=== PATIENT | female | born 1965 | race Caucasian/White ===

== ENCOUNTER 2017-01-11 06:42 | Inpatient (IN) | payer OTHER ==
[2017-01-11] MEDS ORDERED: LR 1,000 ML IV PRN (07:55)
[2017-01-11] MEDS ORDERED: IBUPROFEN 600 MG TAB PO PRN (07:55)
[2017-01-11] MEDS ORDERED: TERBUTALINE SULFATE 1 MG/ML VIAL IV PRN (07:55)
[2017-01-11] MEDS ORDERED: OLIVE OIL 118 ML BTL MISC PRN (07:55)
[2017-01-11] MEDS ORDERED: EPSOM SALT 454 GM TP PRN (07:55)
[2017-01-11] MEDS ORDERED: OXYTOCIN/RINGERS LACTATE 1,000 ML IV PRN (07:55)
[2017-01-11 07:58] LABS: % IMMATURE GRANULYOCYTES 0.6 % (0.0-1.1); ABSOLUTE IMMATURE GRANULOCYTES 0.07 10^3/uL (0.00-0.10); ADD DIFF? NO; ADD MORPH? NO; ADD SCAN? NO; ATYPICAL LYMPHOCYTE FLAG 0 (0-99); FRAGMENT RBC FLAG 0 (0-99); HEMATOCRIT 34.8 % (38.0-47.0); HEMOGLOBIN 11.7 g/dL (12.6-16.3); LEFT SHIFT FLG 0 (0-99); LIPEMIA HEMOLYSIS FLAG 80 (0-99); MEAN CELL HEMOGLOBIN 29.8 pg (27.9-34.1); MEAN CELL HEMOGLOBIN CONCENTR. 33.6 g/dL (32.4-36.7); MEAN CELL VOLUME 88.8 fL (81.5-99.8); MEAN PLATELET VOLUME 10.1 fL (8.7-11.7); PLATELET CLUMPS FLAG 0 (0-99); PLATELET COUNT 265 10^3/uL (150-400); RED BLOOD CELL COUNT 3.92 10^6/uL (4.18-5.33); RED CELL DISTRIBUTION WIDTH 15.1 % (11.5-15.2)
[2017-01-11] MEDS ORDERED: LR 500 ML IV PRN (07:59)
[2017-01-11] MEDS ORDERED: OXYTOCIN/RINGERS LACTATE 500 ML IV SCH (08:00)
[2017-01-11] MEDS ORDERED: hydrALAZINE 20 MG/ML VIAL IVP ONE (08:02)
[2017-01-11 08:23] LABS: ALANINE AMINOTRANSFERASE 30 IU/L (9-52); ASPARTATE AMINOTRANSFERASE 18 IU/L (14-46); BILIRUBIN,TOTAL 0.4 mg/dL (0.1-1.4); BILIRUBIN-CONJUGATED 0.2 mg/dL (0.0-0.5); BILIRUBIN-UNCONJUGATED 0.2 mg/dL (0.0-1.1); CREATININE 0.7 mg/dL (0.6-1.0); GLOMERULAR FILTRATION RATE > 60; LACTATE DEHYDROGENASE 471 IU/L (313-618); URIC ACID 5.5 mg/dL (2.5-6.8)
[2017-01-11] MEDS ORDERED: hydrALAZINE 20 MG/ML VIAL IVP PRN (08:55)
[2017-01-11] MEDS ORDERED: LIDOCAINE 1% 300 MG/30 ML SDV ONE (10:27)
[2017-01-11] MEDS ORDERED: OXYTOCIN 10 UNIT/ML VIAL ONE (10:27)
[2017-01-11] MEDS ORDERED: MISOPROSTOL 200 MCG TAB ONE (10:27)
[2017-01-11] MEDS ORDERED: AMMONIA AROMATIC 1 EACH AMP IH ONE (10:27)
[2017-01-11] MEDS ORDERED: TERBUTALINE SULFATE 1 MG/ML VIAL ONE (10:27)
[2017-01-11] MEDS ORDERED: OLIVE OIL 118 ML BTL ONE (10:27)
[2017-01-11] MEDS ORDERED: LABETALOL HCL 5 MG/ML 20 ML MDV IVP ONE (10:45)
--- NOTE | 2017-01-11 10:53 | GHP ---
[f rep st] PREOP HISTORY AND PHYSICAL DATE OF ADMISSION: 01/11/2017 HISTORY UPON ADMISSION: The patient is a 51-year-old, G6, P3, A2 with estimated due date of January 23, who presents at 38 weeks and 2 days for induction of labor. The patient's is most recently complicated by -induced hypertension with 2 visits that recorded blood pressures 140s/ 90s, and the patient has proteinuria greater than 500. The patient has periodically had headaches, and the last headache that was the most intense was last night. It did go away with rest. The patient off and on has nausea, but nothing persistent. She did have emesis this morning with her pills on an empty stomach, but is not currently having nausea or headache. The patient has had building edema, and has pitting edema up to her knees at this point. The patient had PIH labs done several weeks ago that were normal, and again today on admission her PIH labs all normal. The patient has been counseled as to the risks and benefits, especially in light of her advanced age. The patient is advised to induce for delivery. The patient agrees, and we will begin Pitocin this morning. The patient's cervix was very favorable with a cervical exam of 3 cm yesterday. CARE: The patient has been with [facility] since 8 weeks gestation. The patient had a conception with IVF with a donor egg through [facility]. The patient had concerns with preimplantation genetic testing that there was an abnormality on chromosome 6. The patient had an amniocentesis done, which did not reveal any chromosomal 6 abnormalities, and the patient has had several serial ultrasounds with the [facility] specialist to assess growth and structure, and these were all normal. The patient did have an echo done in mid that was normal. The patient is advanced age, and has had twice weekly NSTs in the last month, which have been reassuring. She also had a 3rd trimester growth, which showed the 77th percentile of size and good symmetric growth. Normal fluid and placental appearance. The patient has Lawrence's thyroiditis, and has been on natural thyroid replacement. Labs have been checked through the by the patient's thyroid specialist, and they have been reassuring. The patient had gestational diabetes with earlier pregnancies, however 2 checks during this were normal. She has not had any glucosuria recently. labs include maternal blood type A positive with negative antibody screen. RPR nonreactive. Rubella immune. Hepatitis B surface antigen negative. HIV negative. First trimester glucose test was 117, and this was rechecked in 3rd trimester, and it was 95. The patient was also noted to be mildly anemic at 33, and has been on iron. Urinalysis and culture were negative. Pap smear normal. Gonorrhea and chlamydia were negative. The patient had amniocentesis testing as noted above. GBS culture was negative. 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 The patient has had Pap followups and colposcopies x2. The patient had a cervical polyp that was noted and removed by [facility] in 2014. The patient had childhood asthma that was exercise induced with no current problems. The patient has Lawrence's that is followed by her primary care. The patient reports a chronic fatigue syndrome as a teenager. The patient had depression after her daughter's . The patient had an issue with hives for approximately 1 year after she received anesthesia for the surgical removal of a cervical polyp. PAST SURGICAL HISTORY: The hysteroscopy with removal of a cervical polyp in 2014, odontectomy. PAST OBSTETRIC HISTORY: In 1987 a termination of a 1st trimester . In March 1996, a female born at 39+ weeks gestation, with a 12-hour labor after an unmedicated vaginal . The patient had gestational diabetes and then depression. In September 2000, the patient had a male at 8 pounds 5 ounces, delivered after 24 hours of vaginal unmedicated delivery at term. In 2009 the patient had SAB in the 1st trimester. In January 2011, another viable male at 8 pounds 7 ounces with a vaginal at term of approximately 6-8 hours of active labor. ALLERGIES: The patient is allergic to gold, Biaxin, clarithromycin causing hives, and hives after an anesthetic procedure. CURRENT MEDICATIONS: The patient is takes vitamins and low-dose aspirin daily. She has been on vitamin D. She has taken her thyroid medication , which includes 2 different tablets, one is Nature-Throid, and another is a combination T4-T3 that the patient had managed by her primary care. SOCIAL HISTORY: Patient is , lives with her Silvestre and their 3 children. The patient is a nonsmoker. No alcohol or drug use. PHYSICAL EXAM: GENERAL: The patient is a well-developed, well-nourished, white female, in no physical distress. The patient is anxious today knowing that her blood pressure is elevated. VITAL SIGNS: The blood pressures are up to the 200s/100s, and have shown some improvement with multiple doses of hydralazine. The patient is afebrile, and other vital signs are normal. LUNGS : Clear to auscultation bilaterally. CARDIOVASCULAR: Regular rate and rhythm. ABDOMEN: Gravid. heart tones baseline in the 150s, with category 1 tracing, with great accelerations and variability. No decelerations noted. No contractions on monitor. PELVIC: Exam was not repeated, as the patient was told she was 3 cm dilated, with a high station yesterday in the office. EXTREMITIES: Pitting edema up to the knees. Normal DTRs with 1-beat of clonus bilaterally. ASSESSMENT: 1. Intrauterine at 38 weeks and 2 days with -induced hypertension. PIH labs drawn today are all normal. Mild anemia at 34%. We will continue hydralazine doses frequently until the blood pressure is improved. If the blood pressures do not, then we will institute magnesium sulfate for seizure prophylaxis. The patient is asymptomatic at this time. We will begin Pitocin for induction, and when able we will do AROM. 2. The patient is hypothyroid, and is on thyroid medication. 3. Advanced maternal age and an in vitro fertilization with donor egg. Amniocentesis normal by the patient's report. /[id number]/MODL MTDD
[2017-01-11] MEDS ORDERED: CALCIUM GLUCONATE 50 ML IV ONE (11:00)
[2017-01-11] MEDS: MAGNESIUM SULF 20 GM/500 ML BAG IV SCH (11:08)
[2017-01-11 13:55] LABS: ABSOLUTE IMMATURE GRANULOCYTES 0.14 10^3/uL (0.00-0.10); ADD DIFF? NO; ADD MORPH? NO; ADD SCAN? NO; ATYPICAL LYMPHOCYTE FLAG 0 (0-99); FRAGMENT RBC FLAG 0 (0-99); HEMATOCRIT 37.1 % (38.0-47.0); HEMOGLOBIN 12.7 g/dL (12.6-16.3); LEFT SHIFT FLG 10 (0-99); LIPEMIA HEMOLYSIS FLAG 90 (0-99); MEAN CELL HEMOGLOBIN 30.3 pg (27.9-34.1); MEAN CELL HEMOGLOBIN CONCENTR. 34.2 g/dL (32.4-36.7); MEAN CELL VOLUME 88.5 fL (81.5-99.8); MEAN PLATELET VOLUME 10.1 fL (8.7-11.7); PLATELET CLUMPS FLAG 0 (0-99); PLATELET COUNT 269 10^3/uL (150-400); RED BLOOD CELL COUNT 4.19 10^6/uL (4.18-5.33); RED CELL DISTRIBUTION WIDTH 15.3 % (11.5-15.2)
--- NOTE | 2017-01-11 14:16 | OBPROG ---
OBG Labor Progress Note Assessment/Plan: Assessment: IUP at 38w1d PIH with severe pressure range, now on MgSo4 with rose in bladder, proteinuria B/P really improved after labetolol/and Mg, prior had 6 doses of hydralazine AMA - age 51 IVF - donor egg Plan: cont on mg at 2gm/hr, pit to build ctxns, fluid limits 01/11/17 14:13 Subjective: Pt doing ok - was very anxious when b/p were so high. aware of ctxns - but not painful. GFM. GUTIERREZ last noc - not today. had emesis - this am with pills. Objective: 01/11/17 13:32 Patient ABO/Rh A POSITIVE 01/11/17 07:40 Uric Acid 5.5 mg/dL (2.5-6.8) 01/11/17 07:40 Total Bilirubin 0.4 mg/dL (0.1-1.4) 01/11/17 07:40 Conjugated Bilirubin 0.2 mg/dL (0.0-0.5) 01/11/17 07:40 Unconjugated Bilirubin 0.2 mg/dL (0.0-1.1) 01/11/17 07:40 AST 18 IU/L (14-46) 01/11/17 07:40 ALT 30 IU/L (9-52) 01/11/17 07:40 Lactate Dehydrogenase 471 IU/L (313-618) 01/11/17 07:40 Arechiga Current Contraction Pattern: Regular (q 3-4 min) FHR (bpm): 140 FHR Pattern Variability: Moderate FHR Category: 1 Membranes: Intact Oxytocin Orders Assessment - Pre-Induction/Augmentation Assessment Gestational Age: 38 week(s) and 2 day(s) ICD10 Worksheet Patient Problems: Problems Problem Status Onset -induced hypertension Acute
[2017-01-11 14:22] LABS: ALANINE AMINOTRANSFERASE 30 IU/L (9-52); ASPARTATE AMINOTRANSFERASE 17 IU/L (14-46); CREATININE 0.7 mg/dL (0.6-1.0); GLOMERULAR FILTRATION RATE > 60; LACTATE DEHYDROGENASE 540 IU/L (313-618); URIC ACID 5.6 mg/dL (2.5-6.8)
--- NOTE | 2017-01-11 15:58 | OBPROG ---
OBG Labor Progress Note Assessment/Plan: Assessment: IUP at 38w1d - induction with pit PIH with severe pressure range, now on MgSo4 with rose in bladder, proteinuria B/P really improved after labetolol/and Mg, prior had 6 doses of hydralazine AMA - age 51 IVF - donor egg Plan: cont on mg at 2gm/hr, pit to build ctxns, fluid limits - AROM done - to begin pushing soon 01/11/17 14:13 01/11/17 15:55 Subjective: Pt breathing through ctxns and using Nitrous - wants AROM Objective: 01/11/17 13:32 01/11/17 13:32 Patient ABO/Rh A POSITIVE 01/11/17 07:40 Uric Acid 5.6 mg/dL (2.5-6.8) 01/11/17 13:32 Total Bilirubin 0.4 mg/dL (0.1-1.4) 01/11/17 07:40 Conjugated Bilirubin 0.2 mg/dL (0.0-0.5) 01/11/17 07:40 Unconjugated Bilirubin 0.2 mg/dL (0.0-1.1) 01/11/17 07:40 AST 17 IU/L (14-46) 01/11/17 13:32 ALT 30 IU/L (9-52) 01/11/17 13:32 Lactate Dehydrogenase 540 IU/L (313-618) 01/11/17 13:32 - SVE Dilation (cm): 9 Effacement (%): 100 Station: 0 Arechiga Current Contraction Pattern: Regular (q 3 min on 12 mu/min pit) FHR (bpm): 140 FHR Pattern Variability: Moderate FHR Category: 2 Membranes: AROM, Intact Amniotic Fluid Color: Clear - Procedures Non-surgical Procedures: Amniotomy Oxytocin Orders Assessment - Pre-Induction/Augmentation Assessment Gestational Age: 38 week(s) and 2 day(s) ICD10 Worksheet Patient Problems: Problems Problem Status Onset -induced hypertension Acute
[2017-01-11] MEDS ORDERED: METHYLERGONOVINE MAL 0.2 MG/ML INJ ONE (17:01)
[2017-01-11] MEDS ORDERED: ACETAMINOPHEN 325 MG TAB PO PRN (18:11)
[2017-01-11] MEDS ORDERED: DOCUSATE SODIUM 100 MG CAP PO PRN (18:11)
--- NOTE | 2017-01-11 18:19 | OBDEL ---
Info Type: Vaginal GBS+: No Indications for Delivery: Preeclampsia Severe Vaginal Delivery - Labor and Delivery Onset of Contractions Date: 01/11/17 Onset of Contractions Time: 14:00 Onset of Contractions Type: Induced Rupture of Membranes Date: 01/11/17 Rupture of Membranes Time: 15:42 Rupture of Membranes Type: Artificial Amniotic Fluid Color: Clear Dilation Complete Date: 01/11/17 Dilation Complete Time: 16:24 Placenta Delivery Date: 01/11/17 Placenta Delivery Time: 17:00 Total Hours of Labor: 3 Non-surgical Procedures: Amniotomy Laceration: Other (Specify) (none) Vaginal Sponge Count Correct: Yes Vaginal Needle Count Correct: Yes Vaginal Sweep Performed: Yes EBL: 1500 Delivery Events: Post Hemorrhage, Retained Placenta (manual extraction after 30 minutes - appears intact but calcified with a marginal/velamentous cord insertion) Delivery Comment: cord blood and tissue collection - Medications Labor Augmentation/Induction Methods Used: Pitocin, Misoprostol (used after delivery - 1000mcg pr for PPH) Labor Augmentation/Induction Indication: Other (Specify) (severe preeclampsia) Spray Data Arechiga Delivery Date: 01/11/17 Delivery Time: 16:25 CARLYLE: 01/23/17 Gestational Age: 38 week(s) and 2 day(s) Sex of : Female Score (1 Min): 8 Score (5 Min): 10 ICD10 Worksheet Patient Problems: Problems Problem Status Onset Retained placenta with hemorrhage, condition Acute (spontaneous vaginal delivery) Acute Preeclampsia, severe Acute
[2017-01-11 21:19] LABS: HEMATOCRIT 28.5 % (38.0-47.0); HEMOGLOBIN 9.5 g/dL (12.6-16.3); MEAN CELL HEMOGLOBIN 30.1 pg (27.9-34.1); MEAN CELL HEMOGLOBIN CONCENTR. 33.3 g/dL (32.4-36.7); MEAN CELL VOLUME 90.2 fL (81.5-99.8); RED BLOOD CELL COUNT 3.16 10^6/uL (4.18-5.33); RED CELL DISTRIBUTION WIDTH 15.6 % (11.5-15.2)
[2017-01-12 00:51] LABS: % IMMATURE GRANULYOCYTES 1.2 % (0.0-1.1); ABSOLUTE IMMATURE GRANULOCYTES 0.27 10^3/uL (0.00-0.10); ADD DIFF? NO; ADD MORPH? NO; ADD SCAN? NO; ATYPICAL LYMPHOCYTE FLAG 0 (0-99); FRAGMENT RBC FLAG 0 (0-99); HEMATOCRIT 25.9 % (38.0-47.0); HEMOGLOBIN 8.7 g/dL (12.6-16.3); LEFT SHIFT FLG 10 (0-99); LIPEMIA HEMOLYSIS FLAG 80 (0-99); MEAN CELL HEMOGLOBIN 30.4 pg (27.9-34.1); MEAN CELL HEMOGLOBIN CONCENTR. 33.6 g/dL (32.4-36.7); MEAN CELL VOLUME 90.6 fL (81.5-99.8); MEAN PLATELET VOLUME 10.1 fL (8.7-11.7); PLATELET CLUMPS FLAG 0 (0-99); PLATELET COUNT 224 10^3/uL (150-400); RED BLOOD CELL COUNT 2.86 10^6/uL (4.18-5.33); RED CELL DISTRIBUTION WIDTH 15.9 % (11.5-15.2)
[2017-01-12] MEDS: MAGNESIUM SULF 20 GM/500 ML BAG IV SCH (05:50)
[2017-01-12 06:37] LABS: % IMMATURE GRANULYOCYTES 0.7 % (0.0-1.1); ABSOLUTE IMMATURE GRANULOCYTES 0.13 10^3/uL (0.00-0.10); ADD DIFF? NO; ADD MORPH? NO; ADD SCAN? NO; ATYPICAL LYMPHOCYTE FLAG 10 (0-99); FRAGMENT RBC FLAG 0 (0-99); HEMATOCRIT 23.8 % (38.0-47.0); LEFT SHIFT FLG 0 (0-99); LIPEMIA HEMOLYSIS FLAG 80 (0-99); MEAN CELL HEMOGLOBIN 30.3 pg (27.9-34.1); MEAN CELL HEMOGLOBIN CONCENTR. 33.6 g/dL (32.4-36.7); MEAN CELL VOLUME 90.2 fL (81.5-99.8); MEAN PLATELET VOLUME 10.3 fL (8.7-11.7); PLATELET CLUMPS FLAG 0 (0-99); PLATELET COUNT 226 10^3/uL (150-400); RED BLOOD CELL COUNT 2.64 10^6/uL (4.18-5.33); RED CELL DISTRIBUTION WIDTH 16.2 % (11.5-15.2)
[2017-01-12 06:58] LABS: ALANINE AMINOTRANSFERASE 26 IU/L (9-52); ASPARTATE AMINOTRANSFERASE 16 IU/L (14-46); BILIRUBIN,TOTAL 0.2 mg/dL (0.1-1.4); BILIRUBIN-CONJUGATED 0.2 mg/dL (0.0-0.5); CREATININE 0.8 mg/dL (0.6-1.0); GLOMERULAR FILTRATION RATE > 60; LACTATE DEHYDROGENASE 599 IU/L (313-618); URIC ACID 6.6 mg/dL (2.5-6.8)
--- NOTE | 2017-01-12 09:17 | OBPP ---
Progress Note Assessment/Plan: Assessment:ff@u scant rubra lochia minimally swelling vaginally , ice to perineum dtrs none clonus none vs wnl pain well managed denies passing gas rose catheter inplace 50cc per hour concentrated urine Plan:mgso4 until 1630 decrease mgso4 to 1gm per hour now/ work on / hct 23 with no mgso4 will assess symptoms of low hct with increased activity 01/12/17 09:18 Subjective: Feeling tired with magnesium sulfate. Bleeding minimally. going fair. Pumping routinely. Baby sleepy. Objective: 01/12/17 06:00 01/11/17 13:32 Patient ABO/Rh A POSITIVE 01/11/17 07:40 Uric Acid 5.6 mg/dL (2.5-6.8) 01/11/17 13:32 Total Bilirubin 0.4 mg/dL (0.1-1.4) D 01/11/17 07:40 Conjugated Bilirubin 0.2 mg/dL (0.0-0.5) 01/11/17 07:40 Unconjugated Bilirubin 0.2 mg/dL (0.0-1.1) 01/11/17 07:40 AST 17 IU/L (14-46) 01/11/17 13:32 ALT 30 IU/L (9-52) 01/11/17 13:32 Lactate Dehydrogenase 540 IU/L (313-618) 01/11/17 13:32 Physical Exam - Physical Exam General Appearance: WD/WN, alert, no apparent distress Respiratory: chest non-tender, lungs clear, normal breath sounds Cardiac/Chest: regular rate, rhythm Abdomen: normal bowel sounds, other (denies passing gas) Extremities: normal range of motion, Bryant's sign (negative bilaterally) DTR- Lower Extremities: Knee (R): 0, Knee (L): 0 (no clonus) Skin: normal color, warm/dry Neuro/Psych: no motor/sensory deficits, alert, normal mood/affect, oriented x 3
[2017-01-13 08:08] VITALS: BP 147/78; PULSE 78; RESP 16; TEMP 97.3; O2SAT 94
--- NOTE | 2017-01-13 09:28 | OBGCSDC ---
General Delivery Information - General Info : 6 Para: 4 Abortions: 2 Delivery Physician/CNM: Norma Sequeira Admission Date: 01/11/17 Labs: Patient ABO/Rh A POSITIVE 01/11/17 07:40 Hct 23.8 % (38.0-47.0) L 01/12/17 06:00 Vaginal - Diagnosis Labor: Induced (due to severe preeclampsia, AMA) Presentation at Delivery: Vertex Rupture of Membranes Type: Artificial Amniotic Fluid Color: Clear Laceration: Other (Specify) (none) Delivery Events: Post Hemorrhage, Retained Placenta (manual extraction after 30 minutes - appears intact but calcified with a marginal/velamentous cord insertion) - Operations/Procedures Non-surgical Procedures: Amniotomy L&D Analgesia/Anesthesia Type: Nitrous - Hospital Course Antepartum: IVF with donor egg with question of chromo 6 abnormality - amnio nl and serial u /s with MFM normal. AMA with growth u/s and NST for surveillance. savi's thyroiditis followed by PCP through preg. borderline b/p in last week and elevated 24 hr urine - nl labs. upon presentation to L&D, pt was severly hypertensive - labs nl Intrapartum: severe HTN despite 6 doses hydralazine, Mg started and given IV labetolol and B/ P improved - pitocin for induction - labor progressed well - only one push for delivery. retained plac and manual extraction at 30 min with PPH of 1500ml. given pit and 1000mcg of pr cytotec : 24 hrs magnesium sulfate. B/P up to 140/70s after Mg. hct dropped to 23 but VSS and HR in 70s. pt caitlyn anemia well. D/C for fu in 2-3 days - Delivery Non-surgical Procedures: Amniotomy L&D Analgesia/Anesthesia Type: Nitrous [place] Data Arechiga Delivery Date: 01/11/17 Delivery Time: 16:25 CARLYLE: 01/23/17 Gestational Age: 38 week(s) and 4 day(s) Sex of Infant: Female [place] Weight (gm): 2880 kg Score (1 Min): 8 Score (5 Min): 10 Discharge Information - Discharge Information Discharge Medications: Iron, Ibuprofen, Vitamins Condition: Fair Instruction/Follow Up: See Instruction Sheet (2-3 days fu for B/P check), Four Weeks (with therapist), Six Weeks (with Dr Sequeira) Discharge Physician/CNM: Norma Sequeira
--- NOTE | 2017-01-13 12:02 | OBPP ---
Progress Note Assessment/Plan: Assessment: PPD 2 s/p with PPH and manual extraction of placenta Severe preeclampsia s/p 24 hrs of mg. B/P normal range - disc further caution of appt in 2-3 days to recheck Severe anemia - very tolerable with normal HR - minimal light headedness. hypothyroid - will cont meds Plan: D/C home, iron TID, hydrate well. 01/11/17 14:13 01/11/17 15:55 01/13/17 11:57 Subjective: Pt doing well. A bit lightheaded this am but really feels pretty good. light bleeding. urinating fine. Baby is latching well. hasn't even needed ibu. Disc placental delayed removal and if any issue for future - disc watching the bleeding and reassurance if bleeding subsides normally. Objective: 01/12/17 06:00 01/11/17 13:32 Patient ABO/Rh A POSITIVE 01/11/17 07:40 Uric Acid 5.6 mg/dL (2.5-6.8) 01/11/17 13:32 Total Bilirubin 0.4 mg/dL (0.1-1.4) D 01/11/17 07:40 Conjugated Bilirubin 0.2 mg/dL (0.0-0.5) 01/11/17 07:40 Unconjugated Bilirubin 0.2 mg/dL (0.0-1.1) 01/11/17 07:40 AST 17 IU/L (14-46) 01/11/17 13:32 ALT 30 IU/L (9-52) 01/11/17 13:32 Lactate Dehydrogenase 540 IU/L (313-618) 01/11/17 13:32 Temp Pulse Resp BP Pulse Ox 36.3 C 78 16 147/78 H 94 01/13/17 08:07 01/13/17 08:07 01/13/17 08:07 01/13/17 08:07 01/13/17 08:07 Uterine Position/Fundal Height: Umbilicus -1 Uterine Tone: Firm Physical Exam - Physical Exam General Appearance: WD/WN Abdomen: non-tender, soft, other (FF at umb -1, normal lochia) Extremities: non-tender, pedal edema (mod edema) Skin: normal color, warm/dry Neuro/Psych: normal mood/affect
== END 2017-01-13 14:00 | disposition home or self-care (01) | DRG 774 ==
LOC: FLD 06:42 → FOB 01-12 18:39
PROVIDERS: ADMIT Obstetrics & Gynecology; ATTEND Obstetrics & Gynecology
PROC: 10907ZC Drainage of Amniotic Fluid, Therapeutic from Products of Conception, Via Natural or Artificial Opening (ICD-10-PCS; principal; 2017-01-11)
PROC: 3E033VJ Introduction of Other Hormone into Peripheral Vein, Percutaneous Approach (ICD-10-PCS; principal; 2017-01-11)
PROC: 10E0XZZ Delivery of Products of Conception, External Approach (ICD-10-PCS; principal; 2017-01-11)
DX: O14.14 Severe pre-eclampsia complicating childbirth (principal); O72.2 Delayed and secondary postpartum hemorrhage; O99.284 Endocrine, nutritional and metabolic diseases complicating childbirth; E06.3 Autoimmune thyroiditis; Z37.0 Single live birth; Z3A.38 38 weeks gestation of pregnancy
CPT/HCPCS: J0360; J0610; J2210; J2590; J3105; J3475; J3490